=== PATIENT | male | born 1960 | race American Indian/Alaskan Native ===

== ENCOUNTER 2020-09-15 20:38 | Emergency (ER) | payer SELFPAY ==
--- NOTE | 2020-09-15 23:01 | Event Note ---
ED Screening Note Date of service: 09/15/20 Time: 22:55 ED Screening Note: Patient complains of sudden onset of right eye blurry vision today Denies eye pain or headache No history of stroke No numbness tingling or weakness in his limbs per patient Romberg is negative This initial assessment/diagnostic orders/clinical plan/treatment(s) is/are subject to change based on patients health status, clinical progression and re- assessment by fellow clinical providers in the ED. Further treatment and workup at subsequent clinical providers discretion. Patient/guardian urged not to elope from the ED as their condition may be serious if not clinically assessed and managed. Initial orders include:
== END 2020-09-15 23:00 | disposition left against medical advice (07) ==
LOC: ED 20:38